=== PATIENT | male | born 1945 | race Asian ===

== ENCOUNTER 2019-09-14 17:35 | Inpatient (IN) | payer MEDICARE, MEDICAID ==
[~2019-09-14] VITALS: Ht 177.8 cm; Wt 68.0 kg
[~2019-09-14 17:35] MED LIST: ACTOS45 MG ORAL; CELEBREX200 MG ORAL; METFORMIN HCL850 M1 ORAL; NORCO 5-325 TA1 EACH ORAL; NORVASC5 MG ORAL; TENORMIN50 MG ORAL; VICODIN 5-5001 EACH ORAL; ZOCOR40 MG ORAL
[2019-09-14 23:34] VITALS: BP 134/69
[2019-09-15 00:38] LABS: BASOPHILS % (AUTO) 0.4 % (0.0-2.0); EOSINOPHILS % (AUTO) 3.9 % (0.0-3.0); HEMATOCRIT 42.8 % (42.0-52.0); LYMPHOCYTES % (AUTO) 20.5 % (20.0-45.0); MEAN CORPUSCULAR VOLUME 85 FL (80-99); MONOCYTES % (AUTO) 7.6 % (1.0-10.0); NEUTROPHILS % (AUTO) 67.6 % (45.0-75.0); PLATELET COUNT 272 K/UL (150-450); RED BLOOD COUNT 5.03 M/UL (4.70-6.10); RED CELL DISTRIBUTION WIDTH 15.3 % (11.6-14.8); WHITE BLOOD COUNT 9.2 K/UL (4.8-10.8)
[2019-09-15 00:50] LABS: ANION GAP 8 mmol/L (5-15); BLOOD UREA NITROGEN 31 mg/dL (7-18); CALCIUM 8.4 MG/DL (8.5-10.1); CARBON DIOXIDE 22 MMOL/L (21-32); CHLORIDE 109 MMOL/L (98-107); CREATININE 1.2 MG/DL (0.55-1.30); SODIUM 139 MMOL/L (136-145)
[2019-09-15 00:55] LABS: ALANINE AMINOTRANSFERASE 15 U/L (12-78); ALBUMIN 2.7 G/DL (3.4-5.0); ALBUMIN/GLOBULIN RATIO 0.5 (1.0-2.7); ALKALINE PHOSPHATASE 111 U/L (46-116); ASPARTATE AMINO TRANSFERASE 15 U/L (15-37); BILIRUBIN,TOTAL 0.4 MG/DL (0.2-1.0)
[2019-09-15] MEDS ORDERED: LOSARTAN POTASS25 M1 PO (03:57)
[2019-09-15] MEDS ORDERED: FLOMAX0.4 MG ORAL (03:57)
[2019-09-15] MEDS ORDERED: MOM30 ML ORAL (03:57)
[2019-09-15] MEDS ORDERED: TYLENOL325 MG ORAL (03:57)
[2019-09-15] MEDS ORDERED: DOCUSATE SODIU100 M2 ORAL (03:57)
[2019-09-15] MEDS ORDERED: ROXICODONE5 MG ORAL (03:57)
[2019-09-15 04:00] VITALS: BP 130/75
--- NOTE | 2019-09-15 05:20 | NUR ---
ADMISSION NOTE: Pt is a direct admit arriving from [facility] at on 09/14/19 2300. Pt is A/Ox4 with stable VS. Orders reviewed and physical assessment completed. Patient has a productive cough and a rash on the left wrist with evidence of scratching otherwise skin is intact. Pt is wearing depends that he desires to keep on until soiled. Belongings accounted for with RN. Fall precautions initiated, pt verbalized understand to wait for assistance before attempting to arise from bed. Pt oriented to room and call quintanilla usage. Dr. Scales was paged at [address] Ma returned the page at approx [phone]. Labs, an abdominal ultrasound, diet, and IV fluids were ordered. Med reconciliation and additional admission orders were requested, however, Dr. Ma said he would review pending labs and call back with additional orders for patient care. Dr. Flores returned page for admission orders at 0530, he said he is inhouse. Awaiting MD arrival to unit. Will continue to monitor.
[2019-09-15] MEDS ORDERED: Milk of Magnesia 30ml Ud ORAL PRN (05:45)
[2019-09-15] MEDS: HYDROcodone/Acetamin 5/325 tab ORAL SCH ×5 (05:45→21:20)
[2019-09-15] MEDS ORDERED: oxyCODONE 5mg IR tab ORAL PRN (05:45)
[2019-09-15] MEDS ORDERED: Losartan 25mg tab ORAL PRN (05:45)
[2019-09-15] MEDS ORDERED: Docusate 100mg cap ORAL PRN (05:45)
[2019-09-15] MEDS: NovoLOG Insulin Flexpen SUBQ SCH ×4 (06:23→21:00)
[2019-09-15 06:34] LABS: APPEARANCE,URINE CLEAR; BILIRUBIN, URINE NEGATIVE (NEGATIVE); COLOR,URINE PALE YELLOW; GLUCOSE, URINE (UA) NEGATIVE (NEGATIVE); KETONES,URINE NEGATIVE (NEGATIVE); LEUKOCYTE ESTERASE ,URINE NEGATIVE (NEGATIVE); NITRITE,URINE NEGATIVE (NEGATIVE); PH,URINE 5 (4.5-8.0); PROTEIN,URINE NEGATIVE (NEGATIVE); UROBILINOGEN,URINE NORMAL MG/DL (0.0-1.0)
[2019-09-15 08:00] VITALS: BP 116/56
[2019-09-15] MEDS ORDERED: celeBREX 200mg Cap **SURGERY PATIENTS ONLY ORAL SCH (09:00)
[2019-09-15] MEDS: Meloxicam 15 MG TAB ORAL SCH (09:56)
[2019-09-15 12:00] VITALS: BP 108/64
[2019-09-15 16:00] VITALS: BP 115/74
--- NOTE | 2019-09-15 16:00 | History and Physical Report ---
DATE OF ADMISSION: 09/14/2019 CHIEF COMPLAINT: Intractable abdominal pain, back pain, history of cancer. HISTORY OF PRESENT ILLNESS: The patient is a pleasant 74-year-old male. He has a history of hypertensive heart disease, BPH, diabetes. He has a history of colon cancer diagnosed many years ago. He underwent a resection of the cancer as well as radiation therapy and chemotherapy. He had an ileostomy. He underwent a removal of his ileostomy several years ago. He last saw his oncologist in November and was told he was cancer free. Recently though he has had worsening lower abdominal pain, back pain, and hip pain as well as generalized chest pain and some mild shortness of breath and weakness. He has been receiving pain medications as well as therapy at a intermediate facility. Because of continued worsening symptoms, he is now directly admitted for further evaluation and care. PAST MEDICAL HISTORY: As above. PAST SURGICAL HISTORY: As above. CURRENT MEDICATIONS: Reconciled and reviewed. ALLERGIES: None. FAMILY HISTORY: None. SOCIAL HISTORY: There is no known history of tobacco, ethanol, or drugs. REVIEW OF SYSTEMS: GENERAL: No fevers or chills. HEENT: No headaches or visual changes. CARDIOPULMONARY: Positive chest pain. No shortness of breath. GASTROINTESTINAL: No nausea or vomiting. Positive abdominal pain. GENITOURINARY: No urgency or frequency. MUSCULOSKELETAL: Possible low back pain. NEUROLOGIC: No history of seizures. PHYSICAL EXAMINATION: VITAL SIGNS: Temperature 98, blood pressure 116/56, pulse 72, respirations 18. GENERAL: The patient is well developed. No apparent distress. HEART: Regular rate and rhythm. LUNGS: Clear. ABDOMEN: Soft, nontender, nondistended. EXTREMITIES: Without clubbing, cyanosis, or edema. LABORATORY DATA: Sodium 139, A1c was 6.6, creatinine is 1.2. White count 9. UA was clear. ASSESSMENT: This is a pleasant male with a history of colon cancer, diabetes, hypertension admitted with complaints of chest pain, abdominal pain, hip pain, unclear etiology. Pain has been intractable. PLAN: IV pain medications. Oral pain medications as needed. CT scan of the lumbar spine, hip, and abdomen have been ordered. We will check a CEA level. Cardiology and GI consultations to be obtained. We will follow troponin and EKG. Efren Jailyn Flores DR: REAGAN JOB#: [id number] CC:
--- NOTE | 2019-09-15 16:29 | NUR ---
CASE MANAGEMENT:REVIEW 74 YR OLD MALE ADMITTED DIRECTLY FROM HOME PMH: COLON CA...S/P RESECTION SI: INTRACTABLE ABDOMINAL PAIN 98.6 72 19 116/56 94% ON RA IS: IVF@100/HR NORCO PO Q4HRS : TO MED/SURG [facility]
--- NOTE | 2019-09-15 16:46 | Diagnostic Imaging Report ---
Indication: Chronic abdominal pain Technique: Spiral acquisitions obtained through the abdomen and pelvis. Patient ingested oral contrast No IV contrast utilized, per referring physician request.. Multiplanar reconstructions were generated. Total dose length product 1496 mGycm. CTDIvol(s) 21 mGy. Dose reduction achieved using automated exposure control Comparison: None Findings: A surgical staple line is seen at the rectosigmoid junction. There is considerable increased attenuation of the presacral fat. A few surgical clips are also seen in the pelvis. The appendix is normal. There is no evidence of diverticulosis or diverticulitis. No small bowel distention. No small bowel wall thickening. Ingested contrast has reached the terminal ileum but not the colon. No free or loculated intraperitoneal gas or fluid. Some surgical scarring is seen in the left lower quadrant subcutaneous fat. The distal esophagus, stomach, duodenum are unremarkable. Lack of IV contrast limits assessment of the solid organs. The gallbladder has been removed. There is dilatation of the extrahepatic bile ducts, common bile duct measuring up to 12 mm in diameter. No definite downstream obstructive lesion is demonstrated. The liver, pancreas, spleen, adrenals are unremarkable. The right kidney demonstrates an upper pole cyst. The left kidney are demonstrated no parenchymal abnormality. Nonspecific fat stranding is seen surrounding both kidneys. No renal or ureteral calculi, hydronephrosis, or hydroureter demonstrated. No retroperitoneal or mesenteric mass or adenopathy. No pelvic mass or adenopathy. The left common iliac artery is ectatic, not quite aneurysmal. Surgical hardware is seen in the right hip. This throws off streak artifact which could obscure pathology of the pelvis. There is mild lumbar scoliotic deformity. There is fairly extensive degenerative lumbar spondylosis change. The lung bases demonstrate extensive chronic fibrotic change, with considerable cystic bronchiectasis, interstitial septal thickening, honeycombing, and a large cystic space in the left lower lobe. Unusual chronic appearing ununited fractures of the right ninth and eighth ribs are noted. Impression: No definite acute abnormality Evidence of prior sigmoid resection. Increased attenuation of the presacral fat, likely related to such Extrahepatic biliary ductal dilatation, without evidence of downstream obstructive lesion. Suspect related to age and postcholecystectomy state. However, occult downstream obstruction not completely excludable. Correlation with liver function tests is recommended, with consideration for MRCP if clinically indicated Extensive chronic pulmonary fibrosis Other findings as noted, including chronic appearing ununited fractures of the right eighth and ninth ribs, lumbar scoliosis, degenerative lumbar spondylosis, evidence of prior right hip surgical repair, upper pole right renal cyst, nonspecific bilateral perinephric fat stranding The CT scanner at [facility] is accredited by the [employer] and the scans are performed using protocols designed to limit radiation exposure to as low as reasonably achievable to attain images of sufficient resolution adequate for diagnostic evaluation.
--- NOTE | 2019-09-15 16:58 | Diagnostic Imaging Report ---
Indications: Chronic back pain Technique: Spiral acquisitions obtained through the lumbar spine. Multiplanar reconstructions were generated. No IV contrast utilized. Total dose length product 1496 mGycm. CTDIvol(s) 21 mGy. Dose reduction achieved using automated exposure control Comparison: none Findings: There is mild lumbar dextro scoliotic deformity, otherwise normal bony alignment. Vertebral body heights are preserved. No acute fractures. No dislocations. There is very slight cortical buckling of the sacrococcygeal junction without discrete fracture line demonstrated. At T12-L1, there is broad-based left paracentral and subarticular disc protrusion which may impinge slightly on the lateral recess but does not significantly compromise the spinal canal or left neural foramen. There is bilateral facet arthrosis at this level. The disc space is preserved although there is some vacuum formation At L1-2, there is bilateral facet arthrosis. On the left, this results in mild narrowing of the neural foramen. No significant disc bulge or protrusion, spinal stenosis, or right neural foraminal stenosis. The disc space is preserved. At L2-3, there is moderate to severe degenerative disc narrowing. There are posterior osteophytes. There is bilateral facet arthrosis. No significant spinal stenosis or neural foraminal stenosis is evident. At L3-4, there is mild to moderate degenerative disc narrowing. Posterior osteophyte/disc bulge complex results in borderline narrowing of the spinal canal. Bilateral facet arthrosis results in mild narrowing of the bilateral neural foramina. There is rxjc-vt-rizi apposition of the spinous processes. At L4-5, the disc space is preserved. However, there is broad-based posterior disc protrusion which results in moderate to severe narrowing of the spinal canal and also appears to obliterate the bilateral lateral recesses. There is mild left and at least moderate right neural foraminal stenosis. There is bilateral facet arthrosis. There is mild afqe-em-xtar apposition of the L4 and L5 spinous processes. At L5-S1, right-sided facet arthrosis results in moderate narrowing of the right neural foramen. There is broad-based posterior disc protrusion, but this does not significantly impinge upon the spinal canal or lateral recesses. The left neural foramen is preserved. The disc space is preserved. The included extraspinal soft tissues are described in separate abdomen pelvis CT report Impression: No definite acute bony trauma Slight buckling of the sacrum at the sacrococcygeal junction. This is probably developmental or could be on the basis of prior trauma. Acute fracture deformity deemed less less likely although not completely excludable. Correlate with clinical findings, consider MRI if there is high clinical suspicion Multilevel degenerative changes, as detailed on a level by level basis above. 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
--- NOTE | 2019-09-15 17:00 | Diagnostic Imaging Report ---
Indication: Chronic right hip pain Technique: Spiral acquisitions obtained through the right hip Multiplanar reconstructions were generated. Total dose length product 1496 mGycm. CTDIvol(s) 21 mGy. Radiation dose was minimized using automated exposure control Comparison: none Findings: 3 surgical pins are seen reducing old well-healed well aligned femoral fracture. No evidence of acute fracture. No evidence of dislocation. There is minimal narrowing of the hip joint space and slight irregularity of the acetabular cortical surface. No definite soft tissue contusion demonstrated. The pelvic soft tissues are described in detail on separate abdomen pelvis CT report Impression: Evidence of prior pinning of old femoral neck fracture. No acute abnormality. The CT scanner at [facility] is accredited by the [employer] and the scans are performed using protocols designed to limit radiation exposure to as low as reasonably achievable to attain images of sufficient resolution adequate for diagnostic evaluation.
--- NOTE | 2019-09-15 17:02 | Diagnostic Imaging Report ---
Indication: Reason For Exam: PAIN Technique: Spiral acquisitions obtained through the left hip. Multiplanar reconstructions were generated. Total dose length product 1496 mGycm. CTDIvol(s) 21 mGy. Radiation dose was minimized using automated exposure control Comparison: none Findings: Bony alignment is normal. A slight degenerative changes of the left hip or manifested by subchondral cysts within the acetabulum. The joint space is nonetheless preserved. No acute fractures. No dislocations. The included soft tissues are described in detail on separate abdomen pelvis CT report Impression: No acute abnormality Mild left hip degenerative changes The CT scanner at [facility] is accredited by the [employer] and the scans are performed using protocols designed to limit radiation exposure to as low as reasonably achievable to attain images of sufficient resolution adequate for diagnostic evaluation.
--- NOTE | 2019-09-15 18:00 | NUR ---
NURSE NOTES: Dr Coleman phoned through out shift , for updates on pt care. Pt noted with swelling to the right side of his face and a possible tooth abscess, NNO. also made aware of redness to pt rt forearm warm to touch, charge nurse made aware, NNO. Pt did not cooperate with consumption of full oral contrast, Dr made aware of results. Son currently at bedside, informed of CT of the abdomen results. gave orders to upgrade diet to Cardiac soft easy chew. Pt noncompliant with fluids and insulin. Required one unit refused. Waved hand no and said that is okay. R/B explained. Gave orders to d/c fluids and to give Heparin 5000 subQ bid
--- NOTE | 2019-09-15 19:53 | NUR ---
NURSE NOTES: Received patient in bed, patient is awake, alert, oriented x 4, Malay speaking, on room air, can use urinal, able to make his needs known, call light is within reach, bed is lowered, locked and alarm is on. Will continue to monitor for comfort and safety.
[2019-09-15 20:00] VITALS: BP 111/59
--- NOTE | 2019-09-15 20:11 | NUR ---
HAND-OFF: Report given to Shahnaz GUERRERO .
[2019-09-15] MEDS: Tamsulosin 0.4mg cap ORAL SCH (21:19)
[2019-09-15] MEDS: Heparin 5000 units/ml inj SUBQ SCH (21:21)
[2019-09-15 22:08] VITALS: BP 111/59
--- NOTE | 2019-09-15 22:45 | Progress Note ---
DATE: 09/15/2019 CARDIOLOGY PROGRESS NOTE SUBJECTIVE: The patient continues to have discomfort in his abdomen. No vomiting. Some nausea. He has been on analgesics and antiemetics. He denies chest pain. OBJECTIVE: VITAL SIGNS: Blood pressure 108/64, pulse 72, respiratory rate 18, afebrile. LUNGS: Clear. CARDIAC: Regular rhythm and rate. Normal S1, S2 with a 1/6 systolic murmur at the lower left sternal border. ABDOMEN: Soft. EXTREMITIES: With no edema. CAT scans reviewed. LABORATORY DATA: Labs noted. IMPRESSION: 1. Abnormal EKG, likely metabolic in etiology. No signs of acute ischemia. Underlying cardiomyopathy following chemotherapy cannot be excluded. 2. Moderate protein-calorie malnutrition. 3. Type 2 diabetes mellitus. 4. Colon cancer, status post colostomy. PLAN: 1. Check thyroid panel. 2. Maintenance hydration. 3. Echocardiogram. 4. Further medication adjustments will depend on results of the aforementioned studies. 5. DVT prophylaxis in place. Cooper Ma M.D. DR: ESME JOB#: [id number] CC:
[2019-09-16] VITALS: BP 117/69
[2019-09-16] MEDS: HYDROcodone/Acetamin 5/325 tab ORAL SCH ×6 (01:07→21:02)
--- NOTE | 2019-09-16 03:15 | Consultation ---
DATE OF CONSULTATION: 09/14/2019 CARDIOLOGY CONSULTATION CONSULTING PHYSICIAN: Cooper aM M.D. REQUESTING PHYSICIAN: Efren Flores M.D. REASON FOR CONSULTATION: Abdominal pain with abnormal EKG. HISTORY OF PRESENT ILLNESS: This is a 74-year-old male, who has a known history of hypertensive heart disease. He is status post colon cancer resection with subsequent radiation and chemotherapy. He had an ileostomy that was taken down subsequently. Most recently, he has been noted to be in remission, who presents with abdominal pain and generalized chest discomfort as well with some shortness of breath. He has been on pain medications. I have been asked to assist with cardiovascular care and address his abnormal EKG. PAST MEDICAL HISTORY: Type 2 diabetes mellitus, hypertension, prostatic hypertrophy, and colon cancer as noted above. MEDICATIONS: Reviewed and reconciled. ALLERGIES: None. FAMILY HISTORY: Noncontributory. SOCIAL HISTORY: Negative for smoking, alcohol, or substance abuse. REVIEW OF SYSTEMS: There is no known history of myocardial infarction, rheumatic heart disease, or cardiac arrhythmias. He has received chemotherapy in the past. PHYSICAL EXAM: VITAL SIGNS: Blood pressure 134/69, pulse 61, respiratory rate 18, afebrile, and oxygen saturation on room air is 96%. HEENT: Conjunctivae are pink. Oropharynx clear. NECK: Supple. Jugular venous pressure normal. LUNGS: Clear. CARDIAC: Regular rhythm and rate. Normal S1, S2 with a fourth heart sound. ABDOMEN: Soft. Mild diffuse tenderness. No guarding or rebound. EXTREMITIES: No edema. LABORATORY DATA: Labs are pending. Outpatient EKG, sinus rhythm with nonspecific ST change. IMPRESSION: 1. Abdominal pain. 2. Chest pain. 3. Multiple risk factors for coronary artery disease. 4. History of chemotherapy and possible secondary cardiomyopathy. 5. History of hypertension. PLAN: 1. Repeat EKG, cardiac enzymes, and echocardiogram. 2. Imaging studies of the abdomen. 3. DVT prophylaxis. 4. Titrate antihypertensive regimen. Cooper Ma M.D. DR: ARAVIND JOB#: [id number] CC:
[2019-09-16 04:00] VITALS: BP 126/74
[2019-09-16] MEDS: NovoLOG Insulin Flexpen SUBQ SCH ×4 (06:11→20:53)
[2019-09-16 06:47] LABS: BASOPHILS % (AUTO) 0.8 % (0.0-2.0); EOSINOPHILS % (AUTO) 3.9 % (0.0-3.0); HEMATOCRIT 41.7 % (42.0-52.0); HEMOGLOBIN 13.6 G/DL (14.2-18.0); LYMPHOCYTES % (AUTO) 29.4 % (20.0-45.0); MEAN CORPUSCULAR VOLUME 86 FL (80-99); MONOCYTES % (AUTO) 7.2 % (1.0-10.0); NEUTROPHILS % (AUTO) 58.6 % (45.0-75.0); PLATELET COUNT 253 K/UL (150-450); RED BLOOD COUNT 4.85 M/UL (4.70-6.10); RED CELL DISTRIBUTION WIDTH 15.1 % (11.6-14.8); WHITE BLOOD COUNT 6.1 K/UL (4.8-10.8)
--- NOTE | 2019-09-16 07:14 | General Progress Note ---
Assessment/Plan Problem List: (1) Cellulitis of left arm ICD Codes: L03.114 - Cellulitis of left upper limb SNOMED: 432586869 (2) Colon cancer ICD Codes: C18.9 - Malignant neoplasm of colon, unspecified SNOMED: 333524861 (3) H/O colectomy ICD Codes: Z90.49 - Acquired absence of other specified parts of digestive tract SNOMED: 563443577 (4) Hypertension ICD Codes: I10 - Essential (primary) hypertension SNOMED: 57375178 (5) Abnormal EKG ICD Codes: R94.31 - Abnormal electrocardiogram [ECG] [EKG] SNOMED: 231113416 (6) Pulmonary fibrosis ICD Codes: J84.10 - Pulmonary fibrosis, unspecified SNOMED: 41699400 (7) Intractable low back pain ICD Codes: M54.5 - Low back pain SNOMED: 52487777084992150 (8) Intractable abdominal pain ICD Codes: R10.9 - Unspecified abdominal pain SNOMED: 04433611 (9) Syncope ICD Codes: R55 - Syncope and collapse SNOMED: 182957061 Status: stable Assessment/Plan: follow up trop and ekg/echo iv abx for cellulitis await cea consider mri lumbar spine with contrast if cea elevated iv pain rx Subjective ROS Limited/Unobtainable: No Constitutional: Reports: malaise, weakness HEENT: Reports: no symptoms Cardiovascular: Reports: no symptoms Respiratory: Reports: no symptoms Gastrointestinal/Abdominal: Reports: no symptoms Genitourinary: Reports: no symptoms Neurologic/Psychiatric: Reports: no symptoms Endocrine: Reports: no symptoms Hematologic/Lymphatic: Reports: no symptoms Allergies: Coded Allergies: No Known Allergies (Verified , 06/06/08) All Systems: reviewed and negative except above Subjective decreased back and hip and abd pain. ct reviewed. c/o left arm pain and erythema. ?cellulitis Objective Last 24 Hour Vital Signs Date Time Temp Pulse Resp B/P (MAP) Pulse Ox O2 Delivery O2 Flow Rate FiO2 09/16/19 04:00 97.1 74 21 126/74 (91) 96 09/16/19 00:00 98.3 65 21 117/69 (85) 96 09/15/19 22:08 98.0 58 18 111/59 (76) 96 09/15/19 22:04 Room Air 09/15/19 20:00 98.0 58 18 111/59 (76) 96 09/15/19 16:00 97.6 63 19 115/74 (88) 09/15/19 12:00 98.4 18 108/64 (79) 09/15/19 09:56 72 124/74 09/15/19 09:56 76 124/74 09/15/19 09:00 Room Air 09/15/19 08:00 98.6 72 19 116/56 (76) 94 Intake and Output 09/15/19 09/16/19 18:59 06:59 Intake Total 1260 ml Output Total 300 ml 800 ml Balance 960 ml -800 ml Intake Oral 960 ml IV Total 300 ml Output Urine Total 300 ml 800 ml # Voids 1 # Bowel Movements 2 Laboratory Tests 09/15/19 10:00: Troponin I 0.000, Carcinoembryonic Antigen [Pending] 09/16/19 05:10: Troponin I 0.011, White Blood Count 6.1, Red Blood Count 4.85, Hemoglobin 13.6L , Hematocrit 41.7L, Mean Corpuscular Volume 86, Mean Corpuscular Hemoglobin 28.0 , Mean Corpuscular Hemoglobin Concent 32.5, Red Cell Distribution Width 15.1H, Platelet Count 253, Mean Platelet Volume 5.5L, Neutrophils (%) (Auto) 58.6, Lymphocytes (%) (Auto) 29.4, Monocytes (%) (Auto) 7.2, Eosinophils (%) (Auto) 3.9H, Basophils (%) (Auto) 0.8, Sodium Level [Pending], Potassium Level [Pending ], Chloride Level [Pending], Carbon Dioxide Level [Pending], Blood Urea Nitrogen [Pending], Creatinine [Pending], Estimat Glomerular Filtration Rate [ Pending], Glucose Level [Pending], Calcium Level [Pending], Magnesium Level [ Pending], Total Bilirubin [Pending], Aspartate Amino Transf (AST/SGOT) [Pending] , Alanine Aminotransferase (ALT/SGPT) [Pending], Alkaline Phosphatase [Pending] , Pro-B-Type Natriuretic Peptide [Pending], Total Protein [Pending], Albumin [ Pending], Globulin [Pending] Height (Feet): 5 Height (Inches): 10.00 Weight (Pounds): 150 General Appearance: WD/WN, alert Neck: supple Cardiovascular: regular rhythm Respiratory/Chest: chest wall non-tender, lungs clear, normal breath sounds Abdomen: normal bowel sounds, non tender, soft, no organomegaly Edema: no edema noted Arm (L), no edema noted Arm (R), no edema noted Leg (L), no edema noted Leg (R), no edema noted Pedal (L), no edema noted Pedal (R), no edema noted Generalized Efren Flores MD Sep 16, 2019 07:14
[2019-09-16 07:23] LABS: ALANINE AMINOTRANSFERASE 16 U/L (12-78); ALBUMIN 2.6 G/DL (3.4-5.0); ALBUMIN/GLOBULIN RATIO 0.5 (1.0-2.7); ALKALINE PHOSPHATASE 91 U/L (46-116); ANION GAP 8 mmol/L (5-15); ASPARTATE AMINO TRANSFERASE 20 U/L (15-37); BILIRUBIN,TOTAL 0.8 MG/DL (0.2-1.0); BLOOD UREA NITROGEN 20 mg/dL (7-18); CALCIUM 8.5 MG/DL (8.5-10.1); CARBON DIOXIDE 23 MMOL/L (21-32); CHLORIDE 110 MMOL/L (98-107); CREATININE 1.1 MG/DL (0.55-1.30); POTASSIUM 4.3 MMOL/L (3.5-5.1); SODIUM 141 MMOL/L (136-145)
--- NOTE | 2019-09-16 07:30 | NUR ---
NURSE NOTES: HANDOFF RECEIVED FROM YOLANDA HOFFMAN. PATIENT OBSERVED RESTING IN BED. PATIENT IS AWAKE AND ALERT AND ABLE TO MAKE NEEDS KNOWN. PATIENT CURRENTLY DOES NOT HAVE IV ACCESS. PATIENT HAS A CANE AT BEDSIDE. BED IS IN THE LOW AND LOCKED POSITION WITH CALL LIGHT WITHIN REACH. NO VISIBLE SIGNS OF DISTRESS. WILL CONTINUE TO MONITOR PATIENT.
--- NOTE | 2019-09-16 07:34 | NUR ---
HAND-OFF: Report given to Rigo GUERRERO.
[2019-09-16 08:00] VITALS: BP 115/62
--- NOTE | 2019-09-16 09:30 | NUR ---
PT EVALUATION NOTE Patient seen for initial evaluation, see complete evaluation for details. Patient presents with generalized weakness, impaired balance and impaired safety awareness which affects patient's ability to complete mobility tasks safely. Patient requires supervision for transfers and supervision/SBA for ambulation with FWW due to impulsivity and decreased attention span which makes patient a fall risk. Patient will benefit from skilled inpatient PT intervention to address strength, balance and safety for improved functional mobility, improved safety awareness and decreased fall risk. Recommend discharge to SNF once medically cleared by MD. Addendum: 09/16/19 at 1055 by RIAN OH PT Amended: Links added.
[2019-09-16] MEDS: Losartan 25mg tab ORAL SCH (09:37)
[2019-09-16] MEDS: Meloxicam 15 MG TAB ORAL SCH (09:39)
[2019-09-16] MEDS: Heparin 5000 units/ml inj SUBQ SCH ×2 (09:41→21:07)
[2019-09-16] MEDS: cefTRIAXone 1 GM in D5W 55 ML IVPB SCH (10:43)
[2019-09-16 12:00] VITALS: BP 109/68
--- NOTE | 2019-09-16 15:52 | Cardiology Report ---
APPROVED REPORT EXAM: Two-dimensional and M-mode echocardiogram with Doppler and color Doppler. INDICATION Congestive Heart Failure M-Mode DIMENSIONS IVSd0.8 (0.7-1.1cm)Left Atrium (MM)3.1 (1.6-4.0cm) LVDd4.4 (3.5-5.6cm)Aortic Root4.4 (2.0-3.7cm) PWd1.0 (0.7-1.1cm)Aortic Cusp Exc.1.7 (1.5-2.0cm) IVSs1.2 cm LVDs2.0 (2.5-4.0cm) PWs1.6 cm Technically difficult study due to poor acoustical windows. Normal left ventricular chamber size, systolic function and wall motion to extent visualized. Left ventricular ejection fraction estimated to be 60 %. No evidence of left ventricular hypertrophy . No evidence of pericardial effusion. All other cardiac chamber sizes are within normal limits. Focal aortic valve sclerosis with adequate cusp excursion. Thickened mitral valve leaflets with normal excursion. Mitral annulus and aortic root calcification. Normal pulmonic valve structure. Normal tricuspid valve structure. IVC at size 2.1 cm without physiologic collapse. A color flow and spectral Doppler study was performed and revealed: No aortic regurgitation.. Trace mitral regurgitation. Mitral diastolic velocities suggest reduced left ventricular relaxation c/w mild LV diastolic dysfunction (Grade I ). Trace tricuspid regurgitation. Tricuspid systolic velocities suggests peak right ventricular systolic pressure of 8 mmHg.
[2019-09-16 16:00] VITALS: BP 113/65
--- NOTE | 2019-09-16 19:30 | NUR ---
NURSE NOTES: Received report from YOLANDA Sierra. Patient awake and verbally responsive to let her needs known. Breathing unlabored without distress, discomfort, or sob on room air. Denies pain at this time. IV noted on the LFA 22g intact and patent. Cane at the bedside. Bed placed at the lowest with alarm, brake, and siderails up for safety. Call light placed within reach. Will continue to monitor and provide care as ordered.
--- NOTE | 2019-09-16 19:53 | NUR ---
HAND-OFF: Report given to YOLANDA MORENO.
[2019-09-16 20:00] VITALS: BP 144/77
[2019-09-16] MEDS: Tamsulosin 0.4mg cap ORAL SCH (21:01)
[2019-09-17] VITALS (7 sets, daily range): BP systolic 108–123; BP diastolic 58–82
--- NOTE | 2019-09-17 | Progress Note ---
DATE: 09/16/2019 CARDIOLOGY PROGRESS NOTE SUBJECTIVE: The patient is still with back and hip pain. Diagnostic workup in progress. No chest pain. Echocardiogram revealed normal ejection fraction, no wall motion abnormalities. No significant valvular disease or pulmonary hypertension. OBJECTIVE: VITAL SIGNS: Blood pressure 109/68, heart rate 56 to 62, respiratory rate 22, afebrile. LUNGS: Clear. CARDIAC: Regular. Normal S1, S2. ABDOMEN: Soft. EXTREMITIES: No edema. LABORATORY DATA: White count 6, hemoglobin 12.6. Sodium 141, potassium 4.3, bicarbonate 23, BUN 20, creatinine 1.1. Troponin 0.011. Albumin 2.6. Pro natriuretic peptide 192. IMPRESSION: 1. History of colon cancer. 2. Hip and back pain, rule out metastatic disease. 3. Moderate protein-calorie malnutrition. 4. Slightly elevated CEA level. 5. No signs of acute myocardial ischemia. 6. Abnormal EKG, likely due to metabolic derangements. PLAN: 1. Protein supplement. 2. DVT prophylaxis. 3. Follow up results of thyroid panel. 4. No additional cardiovascular workup planned. Cooper Ma M.D. DR: ESME JOB#: [id number] CC:
[2019-09-17] MEDS: HYDROcodone/Acetamin 5/325 tab ORAL SCH ×6 (01:00→20:42)
--- NOTE | 2019-09-17 05:37 | NUR ---
NURSE NOTES: Patient removed previous IV. When asked patient said "Oh, I didn't know it was there and accidentally took it out while scratching". Explained new IV insertion procedure to the patient. Patient verbalized understanding. Placed new 22g IV on right wrist. New IV site intact, patent, with dry clean dressing. Patient tolerated the procedure well. Will continue to monitor.
[2019-09-17] MEDS: NovoLOG Insulin Flexpen SUBQ SCH ×4 (06:26→20:49)
--- NOTE | 2019-09-17 07:30 | NUR ---
NURSE NOTES: Patient is in bed awake and able to verbalize needs. Stable. Denies pain or SOB. Patient encouraged to use call light for assistance, verbalized understanding. Patient has cane at bedside and verbalized that he will use cane to assist ambulation. Patient is in bed in locked and lowest position. All safety measures provided. Will continue to monitor.
--- NOTE | 2019-09-17 07:32 | NUR ---
HAND-OFF: Report given to YOLANDA Gonzalez.
--- NOTE | 2019-09-17 07:56 | General Progress Note ---
Assessment/Plan Problem List: (1) Cellulitis of left arm ICD Codes: L03.114 - Cellulitis of left upper limb SNOMED: 904408825 (2) Colon cancer ICD Codes: C18.9 - Malignant neoplasm of colon, unspecified SNOMED: 287759746 (3) H/O colectomy ICD Codes: Z90.49 - Acquired absence of other specified parts of digestive tract SNOMED: 285840367 (4) Hypertension ICD Codes: I10 - Essential (primary) hypertension SNOMED: 35845093 (5) Abnormal EKG ICD Codes: R94.31 - Abnormal electrocardiogram [ECG] [EKG] SNOMED: 907344814 (6) Pulmonary fibrosis ICD Codes: J84.10 - Pulmonary fibrosis, unspecified SNOMED: 36110461 (7) Intractable low back pain ICD Codes: M54.5 - Low back pain SNOMED: 28101794194513754 (8) Intractable abdominal pain ICD Codes: R10.9 - Unspecified abdominal pain SNOMED: 84692609 (9) Syncope ICD Codes: R55 - Syncope and collapse SNOMED: 448124708 Status: stable Assessment/Plan: iv abx for cellulitis and dental infxn consider mri lumbar spine iv pain rx dc metformin- per family not supposed to be taking dc planning tomorrow Subjective ROS Limited/Unobtainable: No Constitutional: Reports: malaise, weakness HEENT: Reports: no symptoms Cardiovascular: Reports: no symptoms Respiratory: Reports: no symptoms Gastrointestinal/Abdominal: Reports: diarrhea Genitourinary: Reports: no symptoms Neurologic/Psychiatric: Reports: no symptoms Endocrine: Reports: no symptoms Hematologic/Lymphatic: Reports: no symptoms Allergies: Coded Allergies: No Known Allergies (Verified , 06/06/08) All Systems: reviewed and negative except above Subjective ?dental infxn and left arm cellulitis. on iv abx. +back pain. +diarrhea Objective Last 24 Hour Vital Signs Date Time Temp Pulse Resp B/P (MAP) Pulse Ox O2 Delivery O2 Flow Rate FiO2 09/17/19 04:00 97.7 53 18 108/58 (75) 95 09/17/19 00:00 98.5 54 20 119/61 (80) 96 09/16/19 21:00 Room Air 09/16/19 20:00 98.6 54 22 144/77 (99) 97 09/16/19 16:00 98.3 58 21 113/65 (81) 95 09/16/19 12:00 98.2 62 20 109/68 (82) 95 09/16/19 09:39 56 115/62 09/16/19 09:39 56 115/62 09/16/19 09:37 115/62 09/16/19 09:00 Room Air 09/16/19 08:00 98.1 56 21 115/62 (79) 95 Intake and Output 09/16/19 09/17/19 19:00 07:00 Intake Total 1200 ml 300 ml Balance 1200 ml 300 ml Intake Oral 1200 ml 300 ml # Voids 2 1 Height (Feet): 5 Height (Inches): 10.00 Weight (Pounds): 150 General Appearance: WD/WN, alert Neck: supple Cardiovascular: regular rhythm Respiratory/Chest: chest wall non-tender, lungs clear, normal breath sounds, no respiratory distress Abdomen: normal bowel sounds, non tender, soft, no organomegaly Edema: no edema noted Arm (L), no edema noted Arm (R), no edema noted Leg (L), no edema noted Leg (R), no edema noted Pedal (L), no edema noted Pedal (R), no edema noted Generalized Neurologic: corporate executive II-XII grossly normal, alert, oriented x 3, responsive Efren Flores MD Sep 17, 2019 07:56
[2019-09-17] MEDS: Losartan 25mg tab ORAL SCH (09:00)
[2019-09-17] MEDS: Meloxicam 15 MG TAB ORAL SCH (09:43)
[2019-09-17] MEDS: Heparin 5000 units/ml inj SUBQ SCH ×2 (09:44→20:42)
[2019-09-17] MEDS: cefTRIAXone 1 GM in D5W 55 ML IVPB SCH (10:14)
--- NOTE | 2019-09-17 19:30 | NUR ---
HAND-OFF: Report given to Tita GUERRERO. patient is stable.
[2019-09-17] MEDS: Tamsulosin 0.4mg cap ORAL SCH (20:40)
--- NOTE | 2019-09-17 21:34 | NUR ---
NURSE NOTE: Pt is A/Ox4 with stable VS. Orders reviewed and physical assessment completed. Pt denies any pain at this time. Refused scheduled [place] for 2100. Bed alarm activated. Pt own cane is at bedside. Call quintanilla is within reach, will continue to monitor.
--- NOTE | 2019-09-18 | Progress Note ---
DATE: 09/17/2019 SUBJECTIVE: The patient has no pain. No shortness of breath. Skin infection is improving. Preadmission medication regimen was updated and the patient is not taking metformin. OBJECTIVE: VITAL SIGNS: Blood pressure 113/62, pulse 56, and respirations 18. LUNGS: Clear. CARDIAC: Regular. Normal S1, S2 with no murmur. ABDOMEN: Soft. EXTREMITIES: No edema. SKIN: Rash is improved. IMPRESSION: 1. Cellulitis. 2. Bradycardia. On beta-gillian. 3. Hypertension. PLAN: 1. Decrease the dose of atenolol. 2. Increase dose of losartan. 3. Glucose monitoring. 4. Other therapy without change. 5. No additional cardiovascular studies planned at this time. Cooper Ma M.D. DR: ARAVIND JOB#: [id number] CC:
[2019-09-18] MEDS: HYDROcodone/Acetamin 5/325 tab ORAL SCH ×4 (01:35→13:00)
[2019-09-18 04:35] VITALS: BP 120/64
--- NOTE | 2019-09-18 05:28 | NUR ---
NURSE NOTE: Pt refused all three scheduled doses of [place]. His pain score this shift has ranged between 1-2/10.
[2019-09-18] MEDS: NovoLOG Insulin Flexpen SUBQ SCH ×2 (06:30→11:30)
--- NOTE | 2019-09-18 07:25 | NUR ---
NURSE NOTE: Report given to
--- NOTE | 2019-09-18 07:30 | NUR ---
NURSE NOTES: Patient is in bed asleep. No visible signs of distress noted. Breathing is even and unlabored. Patient is in bed in locked and lowest position with call light within reach. All safety measures provided. WIll continue to monitor.
[2019-09-18 08:00] VITALS: BP 120/70
[2019-09-18] MEDS ORDERED: LOSARTAN POTASS25 MG ORAL (08:30)
[2019-09-18] MEDS: cefTRIAXone 1 GM in D5W 55 ML IVPB SCH (08:48)
[2019-09-18] MEDS: Meloxicam 15 MG TAB ORAL SCH (08:49)
[2019-09-18] MEDS: Heparin 5000 units/ml inj SUBQ SCH (08:56)
[2019-09-18] MEDS ORDERED: Losartan 25mg tab ORAL SCH (09:00)
--- NOTE | 2019-09-18 09:27 | NUR ---
DISCHARGE PLANNING DISCHARGE ORDER NOTED FAXED CLINICALS TO [facility] T: [phone] AWAIT ACCEPTANCE AND ASSIGNED ROOM
--- NOTE | 2019-09-18 10:52 | NUR ---
DISCHARGE PLANNED SPOKE WITH KATIA AT [facility] PATIENT IS RETURNING TO [facility] ROOM 220-2 SKILLED T: [phone] FOR NURSE TO NURSE REPORT [facility] HAS BEEN ARRANGED FOR [address] [employer]
[2019-09-18 12:00] VITALS: BP 114/96
--- NOTE | 2019-09-18 12:04 | NUR ---
NURSE NOTES: Called [facility] x3 to give report. No answer and unable to leave message in mailbox at this time. Will retry as necessary
--- NOTE | 2019-09-18 13:30 | NUR ---
NURSE NOTES: Gave report to Kevin GUERRERO at [facility].
--- NOTE | 2019-09-18 14:00 | NUR ---
NURSE NOTES: Patient discharged to [facility] as ordered. Stable. Denies pain or SOB. Patient has all belongings. Patient's skin is clean, dry, and intact. patient has no IV access. Transferred from bed to [facility] by Kaleb BRUCE from [facility] unit [address]. Patient has all paperwork. Kevin GUERRERO at [facility] aware of patient's transfer.
--- NOTE | 2019-09-18 18:15 | Discharge Summary ---
DATE OF ADMISSION: 09/14/2019 DATE OF DISCHARGE: 09/18/2019 ADMISSION DIAGNOSES: 1. Intractable back pain. 2. Abdominal pain. 3. History of colon cancer. 4. Cellulitis. DISCHARGE DIAGNOSES: 1. Intractable back pain. 2. Abdominal pain. 3. History of colon cancer. 4. Cellulitis. HOSPITAL COURSE: This is a pleasant male with a history of colon cancer status post resection and chemo and radiation. He had severe abdominal pain and back pain as well as hip pain. There is concern about a possible recurrent disease. He had a CAT scan of the abdomen that showed no evidence of any recurrent disease. CT of the spine and hip did show arthritis. He received IV and oral pain medications. He also was noted to have erythema on the left forearm consistent with possible cellulitis. He received IV antibiotic therapy. On discharge, he has improved. He will be discharged back to the alf facility with close followup. DISCHARGE MEDICATIONS: Please see discharge medication list for discharge medications. DIET: Cardiac diet. ACTIVITIES: Ad-nickie. FOLLOWUP: The patient will follow up in one to two days at the alf facility. Efren Flores M.D. DR: KAHLIL JOB#: [id number] CC:
--- NOTE | 2019-09-19 04:15 | Progress Note ---
DATE: 09/18/2019 CARDIOLOGY PROGRESS NOTE SUBJECTIVE: The patient is without abdominal pain, chest pain, or shortness of breath. CAT scan of the abdomen revealed no signs of recurring colon malignancy. Hip pain has improved. OBJECTIVE: VITAL SIGNS: Blood pressure 120/70 to 143/85, pulse 60, respiratory rate 18, and afebrile. LUNGS: Clear. CARDIAC: Regular. Normal S1, S2. ABDOMEN: Soft. EXTREMITIES: No edema. IMPRESSION AND PLAN: 1. Sinus bradycardia, improved on lower dose of beta-gillian. 2. Hypertensive heart disease with controlled blood pressure. No signs of congestive heart failure. 3. History of colon cancer with current remission. 4. Cellulitis. On antimicrobials. 5. Type 2 diabetes mellitus. On oral therapy. Cooper Ma M.D. DR: ARAVIND JOB#: [id number] CC:
--- NOTE | 2019-09-19 13:30 | Cardiology Report ---
APPROVED REPORT EKG Measurement Heart [id number] [place] [id number] Sinus rhythm with premature atrial complexes Otherwise normal ECG
== END 2019-09-18 14:00 | DRG 552 ==
LOC: 3E 23:12
DX: M54.5 Low back pain (principal); L03.114 Cellulitis of left upper limb; E44.0 Moderate protein-calorie malnutrition; R10.9 Unspecified abdominal pain; J84.10 Pulmonary fibrosis, unspecified; Z85.038 Personal history of other malignant neoplasm of large intestine; G89.29 Other chronic pain; E11.9 Type 2 diabetes mellitus without complications; Z90.49 Acquired absence of other specified parts of digestive tract; I11.9 Hypertensive heart disease without heart failure; Z92.3 Personal history of irradiation; M25.552 Pain in left hip; M25.551 Pain in right hip; R07.9 Chest pain, unspecified; R94.31 Abnormal electrocardiogram [ECG] [EKG]; R00.1 Bradycardia, unspecified; M19.90 Unspecified osteoarthritis, unspecified site
CPT/HCPCS: 36415; 72131; 74176; 80053; 81003; 82378; 82962; 83036; 83735; 83880; 84484; 85025; 87081; 93005; 93306; J1815; J7030